=== PATIENT | male | born 1990 | race Caucasian/White ===

== ENCOUNTER 2017-11-20 00:26 | Emergency (ER) | payer OTHER ==
[2017-11-20] MEDS ORDERED: 0.9 % SODIUM CHLORIDE 1,000 ML IV ONE ×2 (01:02→02:12)
[2017-11-20] MEDS ORDERED: THIAMINE HCL 100 MG, MULTIVIT INFUSN,ADULT 1,VIT K 10 ML, FOLIC ACID 5 MG in 0.9 % SODI... IV ONE (01:03)
[2017-11-20 01:44] LABS: BASOPHILS % 0.6 (0.0-1.5); EOSINOPHILS % 1.4 % (0.0-6.8); MEAN CORPUSCULAR VOLUME 89.6 fl (80.0-100.0); MONOCYTES % 3.7 % (0.0-11.0); NEUTROPHILS # 5.8 # k/uL (1.4-7.7)
--- NOTE | 2017-11-20 01:49 | Diagnostic Imaging Report ---
MARK ETIENNE (FOOD PROCESSING SCIENTIST) - ER [facility] [address] [facility].[address] [id number] Report Submission Date: Nov 20, 2017 1:32:08 AM CDT Patient Study Name: BING MCKEON Date: Nov 20, 2017 1:14:48 AM CDT Modality Type: CT Gender: M Description: CT BRAIN W/O CONTRAST : 88 Institution: [facility] Physician: MARK ETIENNE (THO) - ER Head CT without contrast Clinical history: Intoxicated. Fall with head injury. Technique: CT examination of the brain is performed in contiguous axial slices without the use of contrast. Sagittal and coronal reconstructions were performed by the technologist. Findings: There is a left parietal scalp injury with hematoma. The underlying bony structures are intact. Fourth ventricle lies in a normal midline position. The ventricles and sulci are within normal limits. There is no hypodense or hyperdense mass or evidence of intracranial hemorrhage Impression: 1. Left parietal scalp injury. 2. No acute intracranial changes. Electronically signed on Nov 20, 2017 1:32:08 AM CDT by: Brenden ODOM
[2017-11-20] MEDS ORDERED: DIPH,PERTUSS(ACELL),TET VAC/PF 0.5 ML DISP.SYRIN IM ONE (01:59)
--- NOTE | 2017-11-20 01:59 | ED Physician Documentation ---
General Adult - HISTORIAN Historian: patient, other (PD) - HPI Chief Complaint: General Adult Further Comments: yes (27 year old male patient brought in via EMS after falling and hitting his head at [employer] [facility] [employer] [facility]. Laceration and hematoma to occipital area of head, large amount of bleeding. Patient with strong odor of ETOH, speech slurred, multiple profanties, 4 officers at bedside.) - ROS CONST: no problems (Patient unable to contribute to ROS due to intoxication) - PAST HX Past History: denies: none Allergies/Adverse Reactions: Allergies Allergy/AdvReac Type Severity Reaction Status Date / Time No Known Allergies Allergy Verified 11/20/17 04:05 Home Medications: Ambulatory Orders Medication Instructions Recorded Sertraline HCl [Sertraline HCl] 50 mg PO D 11/20/17 Trazodone HCl [Trazodone HCl] 100 mg PO D 11/20/17 amLODIPine BESYLATE [Norvasc] 10 mg PO D 11/20/17 - SOCIAL HX Smoking History: cigarettes Alcohol Use: heavy Drug Use: heroin, marijuana - FAMILY HX Family History: No - REVIEWED ASSESSMENTS Nursing Assessment Reviewed: Yes Vitals Reviewed: Yes Procedures Wound Location: head (scalp - occipital area) Wound Length: 4 cm Wound's Depth, Shape: irregular Wound Explored: contaminated Irrigated w/ Saline (ccs): 1,000 Betadine Prep?: No (chlorhexidine) Anesthesia: Lidocaine w/ Epi Volume of Anesthetic: 10 Wound Repaired With: lindsay (x7) Progress: Edges well approximated. Progress - Progress Progress: 0200 Patient more cooperative. ETOH >330; Will give 3 liters of fluids and recheck ETOH. Patient now states he smoked heroin today, uses THC. 0320 Patient left AMA, pulled out his IV. Refusing any further treatment. Walked out door. with patient. Avel ROMAN notified by RN. ED Results Lab/Radiology - Lab Results Lab Results: Lab Results 11/20/17 01:35 WBC Pending RBC 4.21 M/ul M/ul (3.90-5.20) Hgb 13.2 g/dL g/dL (12.0-18.0) Hct 37.7 % % (37.0-53.0) MCV 89.6 fl fl (80.0-100.0) MCH 31.3 pg pg (28.0-34.0) MCHC 34.9 g/dL g/dL (30.0-36.0) RDW 13.9 % % (11.3-14.3) Plt Count 204 K/mm3 K/mm3 (130-400) Neut % (Auto) 57.3 % % (39.0-79.0) Lymph % (Auto) 35.5 % % (16.0-50.0) Nobles % (Auto) 3.7 % % (0.0-11.0) Eos % (Auto) 1.4 % % (0.0-6.8) Baso % (Auto) 0.6 (0.0-1.5) Neut # (Auto) 5.8 # k/uL # k/uL (1.4-7.7) Lymph # (Auto) 3.6 # k/uL # k/uL (0.6-4.0) Nobles # (Auto) 0.4 # k/uL # k/uL (0.0-0.9) Eos # (Auto) 0.1 # k/uL # k/uL (0.0-0.6) Baso # (Auto) 0.1 # k/uL # k/uL (0.0-0.5) Reactive Lymphs % 1.5 % % (0.0-5.0) Reactive Lymphs # 0.2 # k/uL # k/uL (0.0-0.8) - Radiology Radiology Impressions: Head CT without contrast Clinical history: Intoxicated. Fall with head injury. Technique: CT examination of the brain is performed in contiguous axial slices without the use of contrast. Sagittal and coronal reconstructions were performed by the technologist. Findings: There is a left parietal scalp injury with hematoma. The underlying bony structures are intact. Fourth ventricle lies in a normal midline position. The ventricles and sulci are within normal limits. There is no hypodense or hyperdense mass or evidence of intracranial hemorrhage Impression: 1. Left parietal scalp injury. 2. No acute intracranial changes. Electronically signed on Nov 20, 2017 1:32:08 AM CDT by: Brenden Hernandez - Orders Orders: ED Orders Category Date Time Status Cleanse with NS and Chlorhexid 1T Care 11/20/17 01:01 Active Continuous EKG monitoring Q30M Care 11/20/17 01:01 Active Continuous Pulse Oximetry Q30M Care 11/20/17 01:[address] IV Lock 1T Care 11/20/17 01:[address] BRAIN W/O CONTRAST Stat Exams 11/20/17 Completed ALCOHOL MEDICAL USE ONLY Stat Lab 11/20/17 01:35 Received CBC/PLATELET/DIFF Stat Lab 11/20/17 01:35 Results CMP Stat Lab 11/20/17 01:35 Received TROPONIN I (cTnI) Stat Lab 11/20/17 01:35 Received UA W/MICRO IF INDICATED Stat Lab 11/20/17 01:02 Ordered Urine drug screen [DRUG SCREEN URINE MEDICAL ONLY] Stat Lab 11/20/17 01:02 Ordered 0.9 % Sodium Chloride [Normal Saline] 1,000 ml Med 11/20/17 01:02 Discontinued IV NOW Thiamine HCl 100 mg Med 11/20/17 01:03 Active Multivit Infusn,Adult 1,Vit K [M.v.i. Adult] 10 ml Folic Acid [Folvite] 5 mg 0.9 % Sodium Chloride [Normal Saline] 1,000 ml IV NOW EKG WITH COMPARISON Stat Ther 11/20/17 01:02 Ordered General Adult Physical Exam - PHYSICAL EXAM GENERAL APPEARANCE: intoxicated EENT: eye inspection normal, no signs of dehydration, ELIUD. No: dry mucous membranes RESPIRATORY: no resp distress, chest non-tender, breath sounds normal CVS: reg rate & rhythm, heart sounds normal, equal pulses, no murmur, no gallop , PMI nml, no JVD, no friction rub, 24 ABDOMEN: soft, no organomegaly, normal bowel sounds, no abdominal bruit, no distension SKIN: warm/dry, normal color, other (4 cm laceration to scalp; occipital area) EXTREMITIES: non-tender, normal range of motion, no evidence of injury, no edema , other (OCL on right forearm) NEURO: motor nml, sensation nml, other (uncooperative, speech slurred, MAEx4, follows commands at times; no focal deficiet. ) Discharge Clincal Impression: Alcohol intoxication, Left against medical advice Decision to Admit: NO Decision Time: 03:30
[2017-11-20 02:01] LABS: eGFR (African) > 60; eGFR (Non-African) > 60
[2017-11-20] MEDS ORDERED: POTASSIUM CHLORIDE IV ONE (02:09)
[2017-11-20] MEDS ORDERED: THIAMINE HCL 100 MG/ML 2ML VIAL ONE (02:12)
[2017-11-20] MEDS ORDERED: FOLIC ACID 5 MG/1 ML ONE (02:13)
[2017-11-20] MEDS ORDERED: MULTIVIT INFUSN,ADULT 1,VIT K 10 ML VIAL IV ONE (02:13)
[2017-11-20 02:14] LABS: MEAN CORPUSCULAR HEMOGLOBIN 31.7 pg (28.0-34.0)
[2017-11-20 02:42] LABS: CANNABINOIDS NON NEGATIVE ng/mL (< 50); METHYLENEDIOXYMETHAMPHETAMINE NEGATIVE ng/mL (<500)
[2017-11-20 04:04] VITALS: BP 134/65
[2017-11-20 06:39] LABS: APPEARANCE,URINE CLEAR (CLEAR); COLOR,URINE AMBER (YELLOW); OCCULT BLOOD,URINE NEGATIVE (NEGATIVE)
[2017-11-20 06:40] LABS: PH URINE 6.5 (5.0 - 8.0)
== END 2017-11-20 03:20 | disposition left against medical advice (07) ==
LOC: ED 00:26
DX: S01.01XA Laceration without foreign body of scalp, initial encounter (principal); F10.129 Alcohol abuse with intoxication, unspecified; Z53.9 Procedure and treatment not carried out, unspecified reason
CPT/HCPCS: 12032; 70450; 80053; 80320; 80377; 81002; 84484; 85025; 96365; 96366; J3411; J3490; G0480; G0481; J7030; S1016